=== PATIENT | male | born 1995 | race Two or more races ===

== ENCOUNTER 2023-08-30 20:28 | Emergency (ER) | payer OTHER ==
[~2023-08-30] VITALS: Ht 172.7 cm; Wt 95.3 kg
[2023-08-30] MEDS ORDERED: SYNTHROID200 MCG (21:19)
[2023-08-30 22:08] LABS: HEMATOCRIT 46.5 % (39.0-48.0); HEMOGLOBIN 15.6 g/dL (13-16.00); MEAN CELL VOLUME 86.9 fL (80.0-100.00); MEAN CORPUSCULAR HEMOGLOBIN 29.1 pg (27.00-32.0); MEAN CORPUSCULAR HGB CONC 33.5 g/dl (32.0-36.0); PLATELET COUNT 249 K/uL (150-450); RED BLOOD COUNT 5.35 M/uL (4.00-6.00); RED CELL DISTRIBUTION WIDTH 13.1 % (11.5-14.5)
[2023-08-30 22:32] LABS: ALBUMIN 3.9 gm/dL (3.4-5.0); BILIRUBIN TOTAL 0.77 mg/dL (0.3-1.2); CALCIUM 8.8 mg/dL (8.5-10.1); CREATININE SERUM 1.33 mg/dL (0.70-1.30); GFR 63.57; GLOBULINA 3.5 G/DL (2.4-3.5); POTASSIUM 3.27 mEq/L (3.5-5.1); TOTAL PROTEIN 7.4 gm/dL (6.4-8.2)
[2023-08-30] MEDS ORDERED: PEPCID AC20 MG PO (22:54)
[2023-08-30] MEDS ORDERED: ONDANSETRON ODT8 MG PO (22:54)
== END 2023-08-30 22:59 | disposition home or self-care (01) ==
LOC: ER 20:28
PROVIDERS: General Practice
DX: K52.89 Other specified noninfective gastroenteritis and colitis (principal); Z91.013 Allergy to seafood